=== PATIENT | female | born 1950 | race Caucasian/White ===

== ENCOUNTER 2020-11-22 13:27 | Emergency (ER) | payer MEDICARE ==
[2020-11-22] MEDS ORDERED: SODIUM CHLORIDE 0.9% 1000ML 1,000 ML ONE (13:57)
[2020-11-22 14:06] LABS: BASOPHILS % 0.1 % (0.0-1.0); EOSINOPHILS % 0.2 % (0.0-6.0); HEMATOCRIT 34.1 % (34.2-44.1); HEMOGLOBIN 11.5 g/dL (12.0-16.0); LYMPHOCYTES # (AUTO) 1.2 (1.0-3.2); LYMPHOCYTES % 10.1 % (18.0-39.1); MEAN CORPUSCULAR HEMOGLOBIN 30.1 pg (28-32); MEAN CORPUSCULAR HGB CONC 33.7 g/dL (31-35); MEAN CORPUSCULAR VOLUME 89.3 fL (81-99); MONOCYTES # (AUTO) 0.2 (0.2-0.8); MONOCYTES % 1.6 % (4.4-11.3); NEUTROPHILS % 87.2 % (38.7-80.0); PLATELET COUNT 248 x10e3/uL (140-360); RED BLOOD COUNT 3.82 x10e6/uL (3.6-5.1); RED CELL DISTRIBUTION WIDTH 13.4 % (11.7-14.4)
[2020-11-22 14:08] LABS: ALBUMIN 3.7 g/dL (3.5-5.0); ALBUMIN/GLOBULIN RATIO 1.3 (0.8-2.0); CALCIUM 8.3 mg/dL (8.4-10.2); CREATININE, SERUM 0.78 mg/dL (0.57-1.11); THYROID STIMULATING HORMONE 1.545 uIU/mL (0.350-4.940)
[2020-11-22 14:42] LABS: COLOR,URINE YELLOW (YELLOW)
[2020-11-22 14:43] LABS: CLARITY,URINE SL CLOUDY (CLEAR); KETONES,URINE TRACE (NEGATIVE); LEUKOCYTE ESTERASE ,URINE MODERATE (NEGATIVE); NITRITE,URINE NEGATIVE (NEGATIVE); PROTEIN,URINE DIPSTICK NEGATIVE (NEGATIVE); URINE UROBILINOGEN 0.2 mg/dL (0.2 - 1)
[2020-11-22 14:57] LABS: BACTERIA,URINE MODERATE /HPF; EPITHELIAL CELLS,URINE FEW /LPF; RBC,URINE 0-5 /HPF (0-5)
== END 2020-11-22 15:30 | disposition home or self-care (01) ==
LOC: ER 13:27
DX: R30.0 Dysuria (principal); R33.9 Retention of urine, unspecified; N39.0 Urinary tract infection, site not specified
CPT/HCPCS: 36415; 80053; 81001; 83605; 84443; 84484; 85025; 87040; 87086; 99283; J7030

== ENCOUNTER 2021-03-24 09:00 | Outpatient (RCR) | payer MEDICARE | END 2021-04-03 | LOC: PT 09:00 | PROVIDERS: ATTEND Internal Medicine | DX: M50.223 Other cervical disc displacement at C6-C7 level (principal); M75.32 Calcific tendinitis of left shoulder; M25.512 Pain in left shoulder; M62.81 Muscle weakness (generalized); M53.82 Other specified dorsopathies, cervical region ==

== ENCOUNTER → 2024-02-06 | Outpatient (REF) | payer MEDICARE ==
[~2024-02-06] MED LIST: ULTRAM 50MG50 MG PO
== END ==
LOC: US 09:28
PROVIDERS: ATTEND Otolaryngology
DX: E04.1 Nontoxic single thyroid nodule (principal)
CPT/HCPCS: 10005; 88172; 88173; 88305